=== PATIENT | female | born 1980 | race Caucasian/White ===

== ENCOUNTER 2020-05-07 11:19 | Emergency (ER) | payer BC, SELFPAY ==
[2020-05-07 11:41] VITALS: BP 107/66; PULSE 79; RESP 16; TEMP 36.4; O2SAT 97
--- NOTE | 2020-05-07 11:41 | ED.FEMALEGU ---
HPI - Female Genitourinary General Chief complaint: Urogenital-Female Stated complaint: Possible kidney infection Time Seen by Provider: 05/07/20 11:41 Source: patient and RN notes reviewed History of Present Illness HPI Narrative: Patient is a 39-year-old female who presents the urgent care with complaints of right flank pain. Patient states that she has a 10-year history of urinary tract infections and actually has a follow-up with urology on May 13. Patient states that her PCP told her her urine goes backwards instead of coming down . Patient denies any fever, chills, nausea, vomiting, abdominal pain. Patient states that her UTIs typically start out with flank pain. Patient states that her current symptoms started approximately 3 days ago. Patient denies any blood in the urine. No other acute complaints. No acute distress noted. Patient read the plan of care. Related Data Home Medications Medication Instructions Recorded Confirmed No Home Medications 12/09/19 12/09/19 Allergies Allergy/AdvReac Type Severity Reaction Status Date / Time levofloxacin [From Levaquin] Allergy Intermediate Rash Verified 05/07/20 11:39 Penicillins Allergy Mild Hives / Verified 12/09/19 10:37 Red Face Review of Systems Review of Systems: Narrative: CONSTITUTIONAL: Denies fever, chills, or sweats. EYES: Denies visual changes, redness, or discharge. ENT: Denies rhinorrhea, congestion, sore throat, or otalgia. CARDIOVASCULAR: Denies chest pain, palpitations, or edema. RESPIRATORY: Denies cough or dyspnea. GASTROINTESTINAL: Denies abdominal pain, nausea, vomiting, or diarrhea. GENITOURINARY: Denies dysuria or hematuria. SKIN: Denies rash or itching. MUSCULOSKELETAL: Reports of right flank pain NEUROLOGIC: Denies headache, numbness, or weakness. All other systems reviewed are negative, except as documented in HPI. PMFSH Social History Social History Gender identity (if verbalized by the patient): Female Comments At the time of my signature, I reviewed and agree with the nursing past medical, surgical, social, and family history. There is no relevant family history pertinent to the patient complaint. Exam Narrative: Exam Narrative: GENERAL: This is a well-nourished, well-developed patient, in no apparent distress. HEAD: normocephalic, atraumatic. EYES: PERRL. Sclera clear/white. Vision is grossly intact. EARS: External ears normal NOSE: External nose normal with no obvious nasal discharge, nares without redness, no rhinorrhea. THROAT: Mucous membranes moist NECK: Neck supple GASTROINTESTINAL: Abdomen soft, non-tender, nondistended. SKIN: warm, intact with no suspicious lesions or rash, good texture and turgor. NEURO: awake, alert, and oriented to person, place and time. There were no obvious focal neurologic abnormalities. EXTREMITIES: No clubbing, cyanosis, or edema. BACK: Mild right CVA tenderness Course Vital Signs Vital signs: Vital Signs Temperature 97.5 F L 05/07/20 11:41 Pulse Rate 79 05/07/20 11:41 Respiratory Rate 16 05/07/20 11:41 Blood Pressure 107/66 05/07/20 11:41 Pulse Oximetry 97 05/07/20 11:41 Temperature 97.5 F L 05/07/20 11:41 Pulse Rate 79 05/07/20 11:41 Respiratory Rate 16 05/07/20 11:41 Blood Pressure 107/66 05/07/20 11:41 Pulse Oximetry 97 05/07/20 11:41 Reviewed MDM - Female Genitourinary MDM Narrative Medical decision making narrative: Reviewed lab results with the patient. She is aware that urine analysis is likely indicative of a urinary tract infection. Due to patient's history and positive nitrates on the urine?we will treat for urinary tract infection. We will culture the urine and call her if medication needs to be changed, based on culture results. However, we do not call if medication does in fact treat what grows in the culture. Therefore, I would call for your results in order to relay that info
== END 2020-05-07 12:06 | disposition home or self-care (01) ==
PROVIDERS: Emergency Provider Nurse Practitioner Family
DX: N39.0 Urinary tract infection, site not specified (principal)
CPT/HCPCS: 81003; 87077; 87086; 87088; 87186; 99213; G0463

== ENCOUNTER 2020-05-16 07:23 | Emergency (ER) | payer BC, SELFPAY ==
--- NOTE | ~2020-05-16 | XR_ITS ---
EXAMINATION: XR thoracic spine 3V DATE: 05/16/2020 09:07 INDICATION: Back pain. TECHNIQUE: 3 views of thoracic spine on 4 radiographs were obtained. COMPARISON: Chest 2 views 09/24/2016 FINDINGS: Bone alignment is normal. There is mild chronic anterior wedging of a midthoracic vertebral body. There is mildly decreased disc height at multiple levels in mid thoracic spine. There are endp late osteophytes at most levels. IMPRESSION: 1. Mild thoracic spondylosis. Reviewed, dictated and finalized at location A.
[2020-05-16 07:26] VITALS: BP 121/64; PULSE 58; RESP 18; TEMP 36.9; O2SAT 99
--- NOTE | 2020-05-16 07:41 | PC.NURSE ---
Pt states she has lower back pain that radiates to her sides and her R arm is tingling. Pt denies urinary symptoms. Pt states she finished bactrim 2 days ago for kidney infection. 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 Pt appears in NAD. Pt has call light in reach.
--- NOTE | 2020-05-16 08:35 | ED.BACK ---
HPI - Back Pain/Injury General Chief Complaint: Back Pain/Injury Stated Complaint: back pain Time Seen by Provider: 05/16/20 08:35 History of Present Illness HPI Narrative: Patient presents from home for upper back pain. Started yesterday, without known injury. 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 She does have a history of kidney infections and kidney damage from that, but then her pain is on the flank usually on the right. She has no cough cold fever chills or sweats. The pain seems to be between her shoulder blades, and is 8 out of 10. It does not feel worse with twisting, but is relieved if she arches her back. She has a history of 4 C-sections. She does smoke cigarettes. She does not take prescription medication. MD elicited complaint: back pain Onset (ago): hour(s) Timing: constant Severity: moderate Similar Symptoms Previously: No Quality: dull Location: thoracic spine Relieving factors: other (Arching her back) Associated symptoms: denies other symptoms Related Data Allergies Allergy/AdvReac Type Severity Reaction Status Date / Time levofloxacin [From Levaquin] Allergy Intermediate Rash Verified 05/07/20 11:39 Penicillins Allergy Mild Hives / Verified 12/09/19 10:37 Red Face Review of Systems Review of Systems: Narrative: CONSTITUTIONAL: Denies fever, chills, or sweats. EYES: Denies visual changes, redness, or discharge. ENT: Denies rhinorrhea, congestion, sore throat, or otalgia. CARDIOVASCULAR: Denies chest pain, palpitations, or edema. RESPIRATORY: Denies cough or dyspnea. GASTROINTESTINAL: Denies abdominal pain, nausea, vomiting, or diarrhea. GENITOURINARY: Denies dysuria or hematuria. SKIN: Denies rash or itching. MUSCULOSKELETAL: He has back pain, but not joint pain, or myalgia. NEUROLOGIC: Denies headache, numbness, or weakness. PSYCHIATRIC: Denies anxiety or depression. [facility] Past Medical History Medical History History of pyelonephritis Surgical History Surgical History History of Social History Social History (Updated 05/16/20 @ 08:43 by Emma Cortés MD) Smoking status: Current every day smoker Alcohol intake: current Gender identity (if verbalized by the patient): Female Exam Narrative: Exam Narrative: GENERAL: Well-appearing, well-nourished, crying. HEAD: Normocephalic, atraumatic. EYES: PERRLA and EOMI. ENT: Nares clear, no rhinorrhea or epistaxis. Mucous membranes moist. NECK: Supple. CHEST: Clear to auscultation. No respiratory distress. HEART: Regular rate and rhythm. No murmur heard. Normal peripheral pulses. ABDOMEN: Soft, nontender, nondistended, normal active bowel sounds. EXTREMITIES: Normal range of motion. No edema. SKIN: Warm, dry, no rash. NEURO: No focal deficits. Alert and oriented x3. PSYCH: Crying. Back: Straight spine, no step-offs, no point tenderness, no muscle tenderness. Course Reevaluation(s) Reevaluation #1: Went in to check on the patient and tell her the results of her x-ray. She did not know that she had an compression fracture and did not even know what it was. She was unhappy to find out that she has arthritis and disc disease. She has Dr. Laird who follows with her regularly, but has not seen in spine surgeon. I recommended that if her pain is not better in 2 weeks that she get an MRI, and this could be done with Dr. Laird. Date: 05/16/20 Time: 10:15 Vital Signs Vital signs: Vital Signs Temperature 98.4 F 05/16/20 07:26 Pulse Rate 58 L 05/16/20 07:26 Respiratory Rate 18 05/16/20 07:26 Blood Pressure 121/64 05/16/20 07:26 Pulse Oximetry 99 05/16/20 07:26 Temperature 98.4 F 05/16/20 07:26 Pulse Rate 58 L 05/16/20 07:26 Respiratory Rate 18 05/16/20 07:26 Blood Pressure 121/64 05/16/20 07:26 Pulse Oximetry 99 06
[2020-05-16] MEDS: DIAZEPAM 5 MG TABLET PO (08:43)
== END 2020-05-16 10:26 | disposition home or self-care (01) ==
PROVIDERS: Emergency Provider Emergency Medicine; PCP Family Medicine
DX: M54.6 Pain in thoracic spine (principal); F17.210 Nicotine dependence, cigarettes, uncomplicated; M47.814 Spondylosis without myelopathy or radiculopathy, thoracic region
CPT/HCPCS: 72072; 99283; A9270

== ENCOUNTER 2020-05-16 15:07 | Emergency (ER) | payer BC, SELFPAY ==
--- NOTE | ~2020-05-16 | CT_ITS ---
EXAMINATION: CTA chest DATE: 05/16/2020 16:57 INDICATION: Chest and back pain. TECHNIQUE: Computed tomographic angiography (CTA) of the chest was performed with 100 mL Omnipaque-35 0 intravenous contrast. Volume-rendered 3D-reconstructions of the aorta and large arteries were const ructed by the technologist on a separate workstation. Automated exposure control and iterative recons truction technique were employed. The dose-length product was 366 mGy-cm. COMPARISON: 07/19/2013 FINDINGS: Mild dependent atelectasis in the bilateral lower lobes. No pneumonia, pulmonary edema, pleural effus ion or pneumothorax. Heart size is normal. No pericardial effusion. Thoracic aorta is normal in calib er with no dissection or acute traumatic aortic injury. No pathologically enlarged thoracic lymphaden opathy. Multiple regions of cortical scarring at the visualized upper poles of both kidneys, right gr eater than left. Mild lower thoracic dextrocurvature. Chronic Schmorl's nodes along multiple endplate s in the thoracic and upper lumbar spine the largest on the superior endplate of L2. IMPRESSION: 1. No aortic aneurysm, dissection or other acute cardiopulmonary disease. 2. Cortical cortical scarring at both kidneys, right greater than left. Reviewed, dictated and finalized at location A.
--- NOTE | ~2020-05-16 | XR_ITS ---
EXAMINATION: XR chest 2V DATE: 05/16/2020 16:06 INDICATION: Lower mid chest pain being through the right shoulder. TECHNIQUE: PA and lateral views of the chest were obtained. COMPARISON: Chest radiograph dated 09/24/2016 FINDINGS: The lungs remain clear with no focal airspace opacities, pulmonary edema, pleural effusion or pneumot horax. The cardiomediastinal silhouette is normal. Mild thoracic spondylosis. IMPRESSION: 1. No acute cardiopulmonary disease. Reviewed, dictated and finalized at location A.
--- NOTE | 2020-05-16 15:38 | ECG_ITS ---
Measurements Intervals [place] Rate: 60 P: 19 PA: 117 QRS: 29 QRSD: 91 T: 42 QT: 405 QTc: 405 Interpretive Statements SINUS RHYTHM WITH SHORT PA INTERVAL BASELINE ARTIFACT- I, II, III, AVR, AVF BORDERLINE ECG Electronically Signed On 05-16-2020 17:10:39 CDT by Fernando Pena D.O.
[2020-05-16] MEDS: LORAZEPAM INJ 2 MG/ML VIAL 1 MG IV PUSH (15:48)
[2020-05-16] MEDS: KETOROLAC 30 MG/ML VIAL (*BKC) IV PUSH (15:48)
[2020-05-16 15:56] VITALS: BP 124/66; PULSE 60; RESP 20; TEMP 36.7; O2SAT 97
[2020-05-16 15:58] LABS: Basophils Percent Auto 0.1 % (0.2-1.2); Eosinophils Absolute Auto 0.3 K/mm3 (0-0.3); Eosinophils Percent Auto 2.6 % (0-4.4); Immature Granulocyte Absolute 0.04 K/mm3 (0.00-0.031); Immature Granulocyte Percent A 0.4 % (0-0.5); Lymphocytes Absolute Auto 2.73 K/mm3 (0.9-3.2); Lymphocytes Percent Auto 24.3 % (18.3-44.2); Mean Corpuscular HGB Conc 33.3 g/dl (32-36); Mean Corpuscular Hemoglobin 31.2 pg (26-34); Mean Corpuscular Volume 93.5 fl (80-100); Mean Platelet Volume 9.8 fl (7.4-10.4); Monocytes Absolute Auto 0.7 K/mm3 (0.1-0.6); Monocytes Percent Auto 6.6 % (2.6-8.5); Neutrophils Absolute Auto 7.4 K/mm3 (1.3-6.7); Platelet Count Result 266 k/mm3 (150-375); Red Blood Count 4.49 M/mm3 (4.2-5.4); Red Cell Distribution Width 12.9 % (11.5-14.5); White Blood Count 11.2 K/mm3 (4.5-10.0)
--- NOTE | 2020-05-16 16:03 | ED.GENADULT ---
HPI - General Adult General Chief complaint: Chest Pain Stated complaint: chest pain, was seen earlier today Time Seen by Provider: 05/16/20 15:14 History of Present Illness HPI narrative: Patient is a 39 y/o female complaining of severe, diffuse chest pain since this morning. She rates her pain as 10/10 and the pain radiates to right shoulder. She feels like she cannot catch her breath. She states that her chest pain worsens when she sits down. She has no fever, chills, cough, abdominal pain, vomiting or diarrhea. Of note, she was seen this morning for back pain and was discharged after negative evaluation. Related Data Allergies Allergy/AdvReac Type Severity Reaction Status Date / Time levofloxacin [From Levaquin] Allergy Intermediate Rash Verified 05/07/20 11:39 Penicillins Allergy Mild Hives / Verified 12/09/19 10:37 Red Face Review of Systems Constitutional: Constitutional: Denies chills, Denies fever(s), Denies headache(s) and Denies weakness Eyes: Eyes: Denies blurry vision ENT: Denies headache(s) and Denies neck pain Cardiovascular: Cardiovascular: Reports chest pain and Reports dyspnea Respiratory: Respiratory: Denies cough and Reports dyspnea Gastrointestinal: Gastrointestinal: Denies abdominal pain, Denies diarrhea, Denies nausea and Denies vomiting Genitourinary: Genitourinary: Denies hematuria and Denies dysuria Musculoskeletal: Musculoskeletal: Reports back pain and Denies neck pain Neurologic: Denies headache(s) and Denies weakness PMFSH Past Medical History Medical History History of pyelonephritis Surgical History Surgical History History of Social History Social History Smoking status: Current every day smoker Alcohol intake: current Gender identity (if verbalized by the patient): Female Exam Const: General: no acute distress and well developed Orientation/consciousness: oriented to person, oriented to place, oriented to time and patient oriented x3 HENMT: Head: normocephalic Ears: external ears normal General nose exam: Normal external nose present Eyes: General: appearance normal, both eyes and all related structures Conjunctivae: conjunctivae normal Neck: Neck: normal visual inspection and full ROM Chest: Chest palpation & inspection: normal inspection of the chest and no tenderness Resp: Effort & Inspection: normal respiratory effort Auscultation: clear to auscultation bilaterally Cardio: Rate: regular rate Rhythm: regular rhythm GI: GI Palp: No abdominal tenderness and Yes Soft to palpation Skin: General skin exam: normal color and turgor normal Neuro: General: oriented to person, oriented to place, oriented to time and patient oriented x3 Cognition (Neuro): normal cognition Extrem: General: normal to inspection, full ROM and no pedal edema Psych: Appearance: grossly normal Mental Status: mental status grossly normal Affect: Anxious affect present Course Vital Signs Vital signs: Vital Signs Temperature 36.7 C 05/16/20 15:56 Pulse Rate 60 05/16/20 15:56 Respiratory Rate 05/16/20 15:56 Blood Pressure 124/66 05/16/20 15:56 Pulse Oximetry 97 05/16/20 15:56 Temperature 36.7 C 05/16/20 15:56 Pulse Rate 62 05/16/20 17:07 Respiratory Rate 05/16/20 17:07 Blood Pressure 102/52 L 05/16/20 17:07 Pulse Oximetry 96 05/16/20 17:07 Medical Decision Making Vital Signs Vital Signs: Vital Signs Temperature 36.7 C 05/16/20 15:56 Pulse Rate 60 05/16/20 15:56 Respiratory Rate 05/16/20 15:56 Blood Pressure 124/66 05/16/20 15:56 Pulse Oximetry 97 05/16/20 15:56 Temperature 36.7 C 05/16/20 15:56 Pulse Rate 62 05/16/20 17:07 Respiratory Rate 05/16/20 17:07 Blood Pressure 102/52 L 05/16/20 17:07 Pulse Oximetry 96
[2020-05-16 16:09] LABS: D Dimer 0.48 ug/mL (<0.48)
[2020-05-16 16:10] LABS: Alanine Aminotransferase 16 U/L (4-35); Albumin Level 4.2 g/dL (3.5-5.1); Alkaline Phosphatase 56 U/L (38-126); Aspartate Amino Transferase 22 U/L (14-36); Bilirubin,Total 0.4 mg/dL (0.2-1.3); Blood Urea Nitrogen 19 mg/dL (7-17); Calcium 9.3 mg/dL (8.4-10.2); Carbon Dioxide 25 mmol/L (22-30); Chloride 105 mmol/L (98-107); Estimated CRCL calculation 82 ml/min; Estimated Glomerular Filt Rate > 60; Glucose 94 mg/dL (65-105); Potassium 3.9 mmol/L (3.4-5.0); Sodium 138 mmol/L (137-145)
[2020-05-16 16:17] VITALS: PULSE 58
[2020-05-16 16:22] LABS: Troponin I < 0.012 ng/mL (0.000-0.034)
[2020-05-16 17:07] VITALS: BP 102/52; PULSE 62; RESP 20; O2SAT 96
[2020-05-16 18:58] LABS: Troponin I < 0.012 ng/mL (0.000-0.034)
[2020-05-16 20:04] VITALS: BP 122/77; PULSE 80; RESP 20; TEMP 36.7; O2SAT 99
== END 2020-05-16 20:05 | disposition home or self-care (01) ==
PROVIDERS: Emergency Provider Emergency Medicine; PCP Family Medicine
DX: R07.9 Chest pain, unspecified (principal); R94.31 Abnormal electrocardiogram [ECG] [EKG]
CPT/HCPCS: 36415; 71046; 71275; 72072; 80053; 81025; 84484; 85025; 85380; 93005; 96374; 96375; 99284; A9270; J1885; J2060; Q9967

== ENCOUNTER 2021-03-30 14:43 | Emergency (ER) | payer BC, SELFPAY ==
--- NOTE | 2021-03-30 14:47 | ED.SKABFB ---
HPI - Skin/Abscess/Foreign Bdy General Chief complaint: Skin/Abscess/Foreign Body Stated complaint: rash Time Seen by Provider: 03/30/21 14:48 Source: patient and RN notes reviewed Mode of arrival: ambulatory Limitations: no limitations History of Present Illness HPI narrative: 40-year-old female presents with concern for itchy facial rash, reports rash is around her eyes, and her eyes itch. She denies any discharge from her eyes. Reports symptoms started Saturday morning. She denies any known trigger. Cannot think of any new skin care products, household products. Reports she has been taking new medication for approximately 1 month, Xarelto and [place] for a blood clot. She denies any intervention for her symptoms. She denies difficulty breathing, swollen lips, swollen tongue, itchy tongue, nausea, vomiting, fever. complaint: rash Related Data Home Medications Medication Instructions Recorded Confirmed hydrocodone-acetaminophen 1 tablet PO Q8H PRN 03/30/21 03/30/21 rivaroxaban [Xarelto] 20 mg PO DAILY 03/30/21 03/30/21 Allergies Allergy/AdvReac Type Severity Reaction Status Date / Time levofloxacin [From Levaquin] Allergy Intermediate Rash Verified 03/30/21 14:55 Penicillins Allergy Mild Hives / Verified 03/30/21 14:55 Red Face Review of Systems Review of Systems: Narrative: CONSTITUTIONAL: Denies malaise, chills, sweats, or fever. EYES: Denies visual changes, redness, or discharge. ENT: Denies rhinorrhea, congestion, sinus pain, otalgia or sore throat. CARDIOVASCULAR: Denies chest pain, palpitations, or edema. RESPIRATORY: Denies cough or dyspnea. GASTROINTESTINAL: Denies abdominal pain, nausea, vomiting, diarrhea SKIN: Reports itchy facial rash, rash around her eyes MUSCULOSKELETAL: Denies myalgia. NEUROLOGIC: Denies headache. All systems reviewed & are unremarkable except as noted in HPI and below PMFSH Past Medical History Medical History (Updated 03/30/21 @ 14:55 by Karolyn Murguia NP) History of pyelonephritis Surgical History Surgical History History of Social History Social History Smoking status: Current every day smoker Alcohol intake: current Gender identity (if verbalized by the patient): Female Comments At time of signature, agree with nursing past medical, surgical, social and family history. There is no relevant family history pertinent to the presenting complaint Exam Narrative: Exam Narrative: GENERAL: Well-appearing, well-nourished, and in no acute distress. HEAD: Normocephalic, atraumatic. EYES: PERRLA, conjunctivae clear, sclera clear, and EOMI. mild upper eyelid superficial edema ENT: Mucous membranes moist. Oropharynx without edema, erythema or lesions. NECK: Supple. No lymphadenopathy CHEST: Clear to auscultation. No respiratory distress. HEART: Regular rate and rhythm. SKIN: Warm, dry. Erythematous maculopapular rash noted to the face, satellite lesions on the chest NEURO: Alert and oriented x3. PSYCH: Normal mood and affect Course Course Emergency Course: Patient is aware of diagnosis, understands and agrees to treatment plan. Anticipatory guidance given. Patient agrees to follow-up as directed and is aware of reasons to seek care at the emergency department. Portions of this record may have been created with voice recognition software Vital Signs Vital signs: Vital Signs Temperature 97.4 F L 03/30/21 14:50 Pulse Rate 56 L 03/30/21 14:50 Respiratory Rate 16 03/30/21 14:50 Blood Pressure 115/70 03/30/21 14:50 Pulse Oximetry 99 03/30/21 14:50 Temperature 97.4 F L 03/30/21 14:55 Pulse Rate 56 L 03/30/21 14:55 Respiratory Rate 16 03/30/21 14:55 Blood Pressure 115/70 03/30/21 14:55 Pulse Oximetry 99 03/30/21 14:55 Reviewed. MDM - Skin/Abscess/Foreign Bdy MDM Narrative Medical decision making narrative: D
[2021-03-30 14:50] VITALS: BP 115/70; PULSE 56; RESP 16; TEMP 36.3; O2SAT 99
[2021-03-30 14:55] VITALS: BP 115/70; PULSE 56; RESP 16; TEMP 36.3; O2SAT 99
== END 2021-03-30 15:06 | disposition home or self-care (01) ==
PROVIDERS: Emergency Provider Nurse Practitioner; PCP Family Medicine
DX: L25.9 Unspecified contact dermatitis, unspecified cause (principal); F17.200 Nicotine dependence, unspecified, uncomplicated; Z79.01 Long term (current) use of anticoagulants; Z86.2 Personal history of diseases of the blood and blood-forming organs and certain disorders involving the immune mechanism; Z87.898 Personal history of other specified conditions
CPT/HCPCS: 99213; G0463

== ENCOUNTER 2021-09-19 16:58 | Emergency (ER) | payer BC, SELFPAY ==
[2021-09-19 17:09] VITALS: BP 121/70; PULSE 63; RESP 16; TEMP 37.2; O2SAT 99
--- NOTE | 2021-09-19 17:39 | ED.URI ---
HPI - URI/Sore Throat General Chief Complaint: Upper Respiratory Infection Stated Complaint: wheezing Time Seen by Provider: 09/19/21 17:39 Source: patient, family and RN notes reviewed Mode of arrival: ambulatory Limitations: no limitations History of Present Illness HPI Narrative: Jo is a 41-year-old female patient who ambulated to the [facility]. Patient states for the last 3 days she has had a cough and feels wheezy. Patient states she has a productive cough of clear sputum when she is laying down. Patient states she has a history of asthma but has not used any albuterol or any other meds and 2 years. Patient does smoke daily. Patient has used albuterol and prednisone in the past. Patient denies using any [id number] medications. Patient states she has had nasal congestion and postnasal drainage for the last 3 days MD elicited complaint: cough Related Data Allergies Allergy/AdvReac Type Severity Reaction Status Date / Time levofloxacin [From Levaquin] Allergy Intermediate Rash Verified 09/19/21 17:41 Penicillins Allergy Mild Hives / Verified 09/19/21 17:41 Red Face Review of Systems Review of Systems: CONSTITUTIONAL: Denies body aches, fever, chills, or sweats. EYES: Denies visual changes, redness, or discharge. ENT: Denies rhinorrhea, +congestion, denies sore throat, or otalgia. CARDIOVASCULAR: Denies chest pain, palpitations, or edema. RESPIRATORY: + cough + wheezing GASTROINTESTINAL: Denies abdominal pain, nausea, vomiting, or diarrhea. GENITOURINARY: Denies dysuria or hematuria. SKIN: Denies rash, itching, or wounds. MUSCULOSKELETAL: Denies back pain, joint pain, or myalgia. NEUROLOGIC: Denies headache, numbness, tingling, or weakness. PSYCH: Denies depression or anxiety. System All systems reviewed & are unremarkable except as noted in HPI and below PMFSH Past Medical History Medical History (Updated 09/19/21 @ 17:47 by REYES Mendoza) History of pyelonephritis Surgical History Surgical History History of Social History Social History Smoking status: Current every day smoker Alcohol intake: current Gender identity (if verbalized by the patient): Female Comments At time of signature, I have reviewed and agree with nursing past medical, surgical, social and family history unless otherwise noted. Please see nursing chart for further information. There is no relevant family history pertinent to the presenting complaint Exam Narrative: GENERAL: Well-appearing, well-nourished, and in no acute distress. HEAD: Normocephalic, atraumatic. EYES: EOMI. No redness or drainage. Conjunctivae normal. ENT: Mucous membranes pink and moist. Nares clear. Clear rhinorrhea. NECK: Normal AROM. Supple. No lymphadenopathy. CHEST: No respiratory distress. Inspiratory and Expiratory wheezing heard throughout lung duncan bilaterally HEART: Regular rate and rhythm. No murmur appreciated. Normal peripheral pulses. ABDOMEN: Soft, nontender, nondistended, normal active bowel sounds. MUSCULOSKELETAL: No bony tenderness. EXTREMITIES: Normal range of motion. No edema. SKIN: Warm, dry, no rash. Capillary refill normal. Normal skin turgor. NEURO: No focal deficits. Alert and oriented x3. Gait steady. PSYCH: Normal affect. No signs of depression or anxiety. Course Vital Signs Vital signs: Vital Signs Temperature 37.2 C 09/19/21 17:09 Pulse Rate 63 09/19/21 17:09 Respiratory Rate 16 09/19/21 17:09 Blood Pressure 121/70 09/19/21 17:09 Pulse Oximetry 99 09/19/21 17:09 Temperature 37.2 C 09/19/21 17:09 Pulse Rate 63 09/19/21 17:09 Respiratory Rate 16 09/19/21 17:09 Blood Pressure 121/70 09/19/21 17:09 Pulse Oximetry 99 09/19/21 17:09 Reviewed MDM - URI/Sore Throat Differential Diagnosis Differential diagnosis: Likely upper respirator
== END 2021-09-19 17:55 | disposition home or self-care (01) ==
PROVIDERS: Emergency Provider Nurse Practitioner Family
DX: J06.9 Acute upper respiratory infection, unspecified (principal); F17.200 Nicotine dependence, unspecified, uncomplicated; Z86.718 Personal history of other venous thrombosis and embolism; N28.9 Disorder of kidney and ureter, unspecified
CPT/HCPCS: 99213; G0463

== ENCOUNTER 2022-02-26 10:22 | Emergency (ER) | payer BC, SELFPAY ==
--- NOTE | ~2022-02-26 | XR_ITS ---
EXAMINATION: XR foot LT min 3V DATE: 02/26/2022 10:51 INDICATION: Stepped on a needle at the medial side of the left foot TECHNIQUE: Dorsoplantar, two oblique and lateral views of the left foot were obtained. COMPARISON: None. FINDINGS: Alignment is normal. No fracture. Joint spaces are normal. 1.7 cm long thin linear metallic density c onsistent with a needle fragment in the soft tissues plantar to the proximal diaphysis of the first m etatarsal with superficial tip projecting to within 3 mm of the skin surface. IMPRESSION: 1. Needle fragment in the soft tissues plantar to the proximal left first metatarsal. Reviewed, dictated and finalized at location A. IMPRESSION: 1. Needle fragment in the soft tissues plantar to the proximal left first metat arsal.
[2022-02-26 10:33] VITALS: BP 113/61; PULSE 55; RESP 14; TEMP 36.8; O2SAT 99
--- NOTE | 2022-02-26 12:40 | ED.LOWEXIN ---
HPI - Extremity Injury (Lower) General Chief Complaint: Extremity Injury, Lower <KELBY Leung Last Filed: 02/26/22 20:16> Stated Complaint: needle in foot <KELBY Leung Last Filed: 02/26/22 20:16> Time Seen by Provider: 02/26/22 11:37 <KELBY Leung Last Filed: 02/26/22 20:16> Source: patient <KELBY Leung Last Filed: 02/26/22 20:16> Mode of arrival: ambulatory <KELBY Leung Last Filed: 02/26/22 20:16> Limitations: no limitations <KELBY Leung Last Filed: 02/26/22 20:16> History of Present Illness HPI Narrative: Patient is a 41-year-old female who presents the ED with report of needle in her left foot. Patient reports she was walking on her carpet just prior to arrival when she felt something stab her in her left foot. She did see a sewing needle coming from her left foot and was able to pull this out, but it broke in half. She complains of pain to the insertion point of her left foot. She is able to ambulate, but has pain with this. No other injuries. Her tetanus status is unknown. No fever, chills. <KELBY Leung Last Filed: 02/26/22 20:16> Related Data Allergies/Adverse Reactions: Allergies Allergy/AdvReac Type Severity Reaction Status Date / Time levofloxacin [From Levaquin] Allergy Intermediate Rash Verified 09/19/21 17:41 Penicillins Allergy Mild Hives / Verified 09/19/21 17:41 Red Face <KELBY Leung Last Filed: 02/26/22 20:16> Review of Systems Review of Systems: CONSTITUTIONAL: Denies fever, chills. SKIN: Reports puncture wound to left foot. MUSCULOSKELETAL: Reports pain to L foot from needle stick. Denies back pain. <KELBY Leung Last Filed: 02/26/22 20:16> All systems reviewed & are unremarkable except as noted in HPI and below <Flora Min PA-C - Last Filed: 02/26/22 20:16> [facility] Past Medical History Medical History: Medical History (Updated 02/27/22 @ 00:00 by Kaity Issa) History of pyelonephritis <Flora Min PA-C - Last Filed: 02/26/22 20:16> Surgical History Surgical History: Surgical History History of <Flora Min PA-C - Last Filed: 02/26/22 20:16> Social History Social History: Social History Smoking status: Current every day smoker Alcohol intake: current Gender identity (if verbalized by the patient): Female <Flora Min PA-C - Last Filed: 02/26/22 20:16> Exam Narrative: GENERAL: Well appearing, well-nourished, non-toxic, in no acute distress. HEAD: Normocephalic, atraumatic. RESPIRATORY: Airway patent, respirations nonlabored. Clear to auscultation bilaterally, no rales, rhonchi, wheezing. CARDIOVASCULAR: Regular rate and rhythm without murmurs, rubs, or gallops. Peripheral pulses 2+ and equal bilaterally. MUSCULOSKELETAL: Moves all extremities. Strength/ROM intact without gross deformities. Tenderness to palpation around puncture wound of left foot. SKIN: Punctate puncture opening to sole of left foot under the first metatarsal area. No surrounding erythema. NEURO: A&O X3. Speech clear. Cranial nerves II-XII grossly intact. Steady gait. No ataxic movements. PSYCHIATRIC: Appropriate mood and affect. Normal interaction. <Flora Min PA-C - Last Filed: 02/26/22 20:16> Course PRODUCT DEVELOPMENT ASSISTANT/PA Physician Supervision For this patient encounter, I reviewed the PRODUCT DEVELOPMENT ASSISTANT or PA documentation, treatment plan, and medical decision making <Kenneth Mojica MD - Last Filed: 02/27/22 20:26> Consultations Consultation #1: Spoke with Dr. Ga, Podiatry, who advised he does not take Medicaid. Recommended prophylactic abx, tetanus. <Flora Min PA-C - Last Filed: 02/26/22 20:16> Date: 02/26/22 <Flora Min PA-C - Last Filed: 02/26/22 20:16> Time: 14:10 <Flora Min
[2022-02-26] MEDS: TETANUS,DIPHTHERIA,AC PERTUSSIS ADULT (0.5 ML) BOOSTRIX IM (12:53)
[2022-02-26] MEDS: ceFAZolin SODIUM 1 GM VIAL IM (14:24)
--- NOTE | 2022-02-26 15:23 | PC.NURSE ---
Called Dr Ga podiatry at 1400 for consult. He returned call at 1406. Osmosis
== END 2022-02-26 14:33 | disposition home or self-care (01) ==
PROVIDERS: Emergency Provider Emergency Medicine; PCP Family Medicine
DX: S91.342A Puncture wound with foreign body, left foot, initial encounter (principal); Z23 Encounter for immunization; F17.200 Nicotine dependence, unspecified, uncomplicated; W27.3XXA Contact with needle (sewing), initial encounter
CPT/HCPCS: 28190; 73630; 90471; 90715; 96372; 99283; J0690

== ENCOUNTER 2023-04-13 12:34 | Emergency (ER) | payer BC, SELFPAY ==
--- NOTE | ~2023-04-13 | CT_ITS ---
EXAMINATION: CT lumbar spine wo con DATE: 04/13/2023 15:59 INDICATION: low back pain . TECHNIQUE: Computed tomography (CT) of the lumbar spine was performed without intravenous contrast. A utomated exposure control and iterative reconstruction technique were employed. The dose-length produ ct was 661.66 mGy-cm. COMPARISON: CT abdomen pelvis 12/24/2018. FINDINGS: 5 nonrib-bearing lumbar-type vertebral bodies. 9 mm anterolisthesis at L5-S1. Vertebral bod y heights preserved. Severe disc space narrowing, endplate sclerosis, and vacuum phenomenon at L5-S1. Multiple Schmorl's nodes. Bilateral pars defects at L5. Bilateral severe neural foraminal narrowing at L5-S1. No severe central canal stenosis. Atherosclerotic arterial calcifications. Bilateral adnexa l clips. IMPRESSION: No acute fracture detected in the lumbar spine. Grade 2 anterolisthesis at L5-S1, increased since the prior examination. Severe L5-S1 degenerative disc disease and bilateral neural foraminal narrowing. Reviewed, dictated and finalized at location K. IMPRESSION: No acute fracture detected in the lumbar spine. Grade 2 anterolisthesis at L5-S 1, increased since the prior examination. Severe L5-S1 degenerative disc diseas e and bilateral neural foraminal narrowing.
[2023-04-13 13:06] VITALS: BP 115/61; PULSE 75; RESP 18; TEMP 37.1; O2SAT 99
--- NOTE | 2023-04-13 15:34 | ED.BACK ---
HPI - Back Pain/Injury General Chief Complaint: Back Pain/Injury Stated Complaint: fall, back pain Time Seen by Provider: 04/13/23 14:59 History of Present Illness HPI Narrative: 42-year-old female presents to the emergency room today for complaints of low back pain. She says that she fell down the stairs early this morning and it has been hurting since then. She describes the pain as severe. She is able to ambulate. Denies having any numbness or tingling. No loss of control of bowel or bladder. No history of back surgery but does report having arthritis in her back. Related Data Allergies Allergy/AdvReac Type Severity Reaction Status Date / Time levofloxacin [From Levaquin] Allergy Intermediate Rash Verified 04/13/23 15:39 Penicillins Allergy Mild Hives / Verified 04/13/23 15:39 Red Face Review of Systems Review of Systems: CONSTITUTIONAL: Denies fever, chills, or sweats. EYES: Denies visual changes, redness, or discharge. ENT: Denies rhinorrhea, congestion, sore throat, or otalgia. CARDIOVASCULAR: Denies chest pain, palpitations, or edema. RESPIRATORY: Denies cough or dyspnea. GASTROINTESTINAL: Denies abdominal pain, nausea, vomiting, or diarrhea. GENITOURINARY: Denies dysuria or hematuria. SKIN: Denies rash or itching. MUSCULOSKELETAL: low back pain NEUROLOGIC: Denies headache, numbness, dizziness, or weakness. PSYCHIATRIC: Denies anxiety or depression. PMFSH Past Medical History Medical History (Updated 04/13/23 @ 16:55 by Ramona Montenegro APRN) History of pyelonephritis Surgical History Surgical History History of Social History Social History Smoking status: Current every day smoker Alcohol intake: current Gender identity (if verbalized by the patient): Female Exam Narrative: GENERAL: Well-appearing, well-nourished, and in no acute distress. HEAD: Normocephalic, atraumatic. NECK: Supple. No adenopathy or masses. CHEST: Clear to auscultation. No respiratory distress. No wheezes rales or rhonchi HEART: Regular rate and rhythm. No murmur heard. Normal peripheral pulses. ABDOMEN: Soft, nontender, nondistended, normal active bowel sounds. EXTREMITIES: Normal range of motion. No edema. Back: Tenderness lower lumbar spine, no swelling, bruising or deformity. SKIN: Warm, dry, no rash. NEURO: No focal deficits. Alert and oriented x3. sensation and reflexes lower extremities intact. PSYCH: Normal mood and affect. Course Vital Signs Vital signs: Vital Signs Temperature 37.1 C 04/13/23 13:06 Pulse Rate 75 04/13/23 13:06 Respiratory Rate 18 04/13/23 13:06 Blood Pressure 115/61 04/13/23 13:06 Pulse Oximetry 99 04/13/23 13:06 Oxygen Delivery Room Air 04/13/23 13:06 Temperature 37.1 C 04/13/23 13:06 Pulse Rate 75 04/13/23 13:06 Respiratory Rate 18 04/13/23 13:06 Blood Pressure 115/61 04/13/23 13:06 Pulse Oximetry 99 04/13/23 13:06 Oxygen Delivery Room Air 04/13/23 13:06 MDM - Back Pain/Injury Lab Data Labs: UCG Bedside Result Negative Reference Range: Negative Imaging Data Radiologist's impression: EXAMINATION: CT lumbar spine wo con DATE: 04/13/2023 15:59 INDICATION: low back pain . TECHNIQUE: Computed tomography (CT) of the lumbar spine was performed without intravenous contrast. Automated exposure control and iterative reconstruction technique were employed. The dose-length product was 661.66 mGy-cm. COMPARISON: CT abdomen pelvis 12/24/2018. FINDINGS: 5 nonrib-bearing lumbar-type vertebral bodies. 9 mm anterolisthesis at L5-S1. Vertebral body heights preserved. Severe disc space narrowing, endplate sclerosis, and vacuum phenomenon at L5-S1. Multiple Schmorl's nodes. Bilateral pars defects at L5. Bilateral severe neural fo
[2023-04-13] MEDS: CYCLOBENZAPRINE HCL 10 MG TABLET PO (15:37)
[2023-04-13] MEDS: HYDROcodone/acetaminophen (*CRX) 7.5-325 MG TABLET 1 TAB PO (15:38)
== END 2023-04-13 17:11 | disposition home or self-care (01) ==
PROVIDERS: Emergency Provider Nurse Practitioner Family
DX: M54.50 Low back pain, unspecified (principal); M43.16 Spondylolisthesis, lumbar region; F17.200 Nicotine dependence, unspecified, uncomplicated; W10.9XXA Fall (on) (from) unspecified stairs and steps, initial encounter
CPT/HCPCS: 72131; 81025; 99284; A9270

== ENCOUNTER 2024-05-07 15:21 | Emergency (ER) | payer BC, SELFPAY ==
[2024-05-07 15:34] VITALS: BP 118/64; PULSE 66; RESP 18; TEMP 37.1; O2SAT 100
--- NOTE | 2024-05-07 16:04 | ED.DENTAL ---
HPI - Dental/Oral General Chief complaint: Dental/Oral Stated complaint: tooth pain Time Seen by Provider: 05/07/24 15:44 History of Present Illness HPI Narrative: 43-year-old female presents to emergency department for concerns for a dental abscess. Patient states she has had a focal collection of pus above her right upper tooth for few weeks. States she has been able to express the pus, however keeps feeling up which prompted her to come to the ED. She is reporting pain to this area. Denies fever, vomiting, difficulty eating or swallowing. She does not have a dentist. Related Data Allergies Allergy/AdvReac Type Severity Reaction Status Date / Time levofloxacin [From Levaquin] Allergy Intermediate Rash Verified 05/07/24 15:47 Penicillins Allergy Mild Hives / Verified 05/07/24 15:47 Red Face Review of Systems Review of Systems: CONSTITUTIONAL: Denies fever, chills, or sweats. EYES: Denies visual changes, redness, or discharge. ENT: See HPI CARDIOVASCULAR: Denies chest pain, palpitations, or edema. RESPIRATORY: Denies cough or dyspnea. GASTROINTESTINAL: Denies abdominal pain, nausea, vomiting, or diarrhea. GENITOURINARY: Denies dysuria or hematuria. SKIN: Denies rash or itching. MUSCULOSKELETAL: Denies back pain, joint pain, or myalgia. NEUROLOGIC: Denies headache, numbness, or weakness. PSYCHIATRIC: Denies anxiety or depression. [facility] Past Medical History Medical History History of pyelonephritis Surgical History Surgical History History of Social History Social History Smoking status: Current every day smoker Alcohol intake: current Gender identity (if verbalized by the patient): Female Exam Narrative: GENERAL: Well-appearing, well-nourished, and in no acute distress. HEAD: Normocephalic, atraumatic. EYES: PERRLA and EOMI. ENT: Nares clear, no rhinorrhea or epistaxis. Mucous membranes moist. small Periapical abscess above tooth #5 is easily expressed with 18 gauge needle. No edema to face, floor mouth is soft without crepitus. Airway intact, no airway compromise. Patient tolerating secretions. No trismus. NECK: Supple. CHEST: Clear to auscultation. No respiratory distress. HEART: Regular rate and rhythm. No murmur heard. Normal peripheral pulses. EXTREMITIES: Normal range of motion. No edema. SKIN: Warm, dry, no rash. NEURO: No focal deficits. Alert and oriented x3 Course Vital Signs Vital signs: Vital Signs Temperature 98.8 F 05/07/24 15:34 Pulse Rate 66 05/07/24 15:34 Respiratory Rate 18 05/07/24 15:34 Blood Pressure 118/64 05/07/24 15:34 Pulse Oximetry 100 05/07/24 15:34 Oxygen Delivery Room Air 05/07/24 15:34 Temperature 98.8 F 05/07/24 15:34 Pulse Rate 66 05/07/24 15:34 Respiratory Rate 18 05/07/24 15:34 Blood Pressure 118/64 05/07/24 15:34 Pulse Oximetry 100 05/07/24 15:34 Oxygen Delivery Room Air 05/07/24 15:34 MDM - Dental/Oral MDM Narrative Medical decision making narrative: 43-year-old female presents to emergency department with dental pain and concern for an abscess above her right Upper tooth for a few weeks. Triage vitals stable. Exam is significant for paper apical abscess above tooth #5. no edema, no airway compromise, patient tolerating secretions, no trismus. No evidence of deep space infection. Periapical abscess easily expressed with an 18 gauge needle without complication. I did offer local anesthetic prior to drainage, however patient declined. She is allergic to penicillins and Levaquin. Will start her on clindamycin, 1st dose provided here. Gave her a dose of [place] in the ED as well. Encouraged Tylenol ibuprofen at home for pain. Dental referrals provided. Strict ED return precautions discussed. She is a
[2024-05-07] MEDS: CLINDAMYCIN HCL 150 MG CAP 450 MG PO (16:29)
[2024-05-07] MEDS: HYDROcodone/acetaminophen (*CRX) 5-325 MG TABLET 1 TAB PO (16:29)
[2024-05-07 16:45] VITALS: BP 118/66; PULSE 69; RESP 16; TEMP 36.6; O2SAT 97
== END 2024-05-07 16:45 | disposition home or self-care (01) ==
LOC: ANHED 16:16
PROVIDERS: Emergency Provider Physician Assistant
DX: K04.7 Periapical abscess without sinus (principal); F17.200 Nicotine dependence, unspecified, uncomplicated; Z79.899 Other long term (current) drug therapy
CPT/HCPCS: 99283; A9270

== ENCOUNTER 2024-06-26 01:50 | Emergency (ER) | payer BC, SELFPAY ==
--- NOTE | 2024-06-26 01:52 | PC.NURSE ---
patient began screaming and swearing at this nurse at triage. Demanded that IV be removed and told this nurse she was acting like God, used more foul language and left before being triaged
--- NOTE | 2024-06-26 02:07 | PC.NURSE ---
IV removed prior to patient leaving triage
== END 2024-06-26 01:55 | disposition left against medical advice (07) ==
LOC: ANHED 02:08
DX: Z53.21 Procedure and treatment not carried out due to patient leaving prior to being seen by health care provider (principal)
CPT/HCPCS: 99199

== ENCOUNTER 2024-06-26 02:12 | Emergency (ER) | payer BC, SELFPAY ==
--- NOTE | ~2024-06-26 | CT_ITS ---
EXAMINATION: CT brain wo con DATE: 06/26/2024 03:20 INDICATION: Head injury TECHNIQUE: Computed tomography (CT) of the head was performed without intravenous contrast. The dose- length product was 529.67 mGy-cm. Automated exposure control and iterative reconstruction technique w ere employed. COMPARISON: None FINDINGS: No acute intracranial hemorrhage, infarction, mass or mass effect. No ventriculomegaly or m idline shift. Basilar cisterns are patent paranasal sinuses and mastoids are pneumatized. No depresse d skull fractures. IMPRESSION: 1. No acute intracranial abnormality. Reviewed, dictated and finalized at location B.
--- NOTE | ~2024-06-26 | CT_ITS ---
EXAMINATION: CT thoracic lumbar wo con DATE: 06/26/2024 03:21 INDICATION: Back pain post fall TECHNIQUE: Computed tomography (CT) of the thoracic and lumbar spine was performed without intravenou s contrast. Automated exposure control and iterative reconstruction technique were employed. The dose -length product was 1407.56 mGy-cm. COMPARISON: CT chest dated 05/16/[address] lumbar spine dated 04/13/2023 FINDINGS: Thoracic spine: Alignment is normal. Unchanged chronic mild anterior wedging at T8. There are also large Schmorl's no kennedy along multiple endplates in the mid and lower thoracic spine. No acute fracture. Moderate disc he ight loss at T6-T7 through T8-T9 with mild disc height loss at remaining levels from T4 to T5 through T10-T11. Moderate facet osteoarthritis contributes to mild neural from stenosis on the right at T5-T 6. There is additional multilevel mild to moderate upper thoracic and mild lower thoracic facet osteo arthritis without additional neural foraminal stenosis. Central disc protrusion resulting in mild nikole tral canal stenosis at T6-T7, potentially also at T7-T8 and T8-T9 although assessment is more limited on the CT than MRI. Dependent predominant mosaic attenuation in the lungs likely related to expirato ry phase of imaging and atelectasis. Couple tiny calcified nodules in the right lower lobe consistent with old granulomatous disease. Paravertebral soft tissues are unremarkable. Lumbar spine: Chronic L5 spondylolysis with bilateral pars interarticularis defects and a millimeter anterolisthesi s L5 on S1. There is severe associated disc height loss with Modic type III sclerotic endplate change s at L5-S1. Chronic Schmorl's nodes small the superior endplates of L1 and L3 and larger at the super ior endplate of L2. Aside from L5-S1 the disc heights are relatively preserved. There is a disc extru cathy at L5-S1 with disc material extending up to 7 mm cephalad to the level of the inferior endplate of L5 but not extending more posterior than the posterior rim of the S1 endplate. There is no signifi cant central canal stenosis. Mild multilevel lumbar facet osteoarthritis. The disc extrusion at L5-S1 disc contributing to moderate to severe bilateral neural from stenosis at this level. Additional mil d neural from stenosis on the right at L4-L5. There are likely duplicated rotation clips at the left and right sides of the uterus. Moderate to severe right renal atrophy with compensatory hypertrophy o f the left kidney with a few regions of focal cortical scarring paravertebral soft tissues are otherw ise unremarkable. IMPRESSION: 1. Chronic L5 spondylolysis with bilateral pars in particular is defects, 8 mm anterolisthesis on S1 and severe associated lumbosacral spondylosis including moderate to severe bilateral neural foraminal stenosis. 2. Moderate thoracic and otherwise mild lumbar spondylosis with no acute osseous abnormality. Reviewed, dictated and finalized at location A. IMPRESSION: 1. Chronic L5 spondylolysis with bilateral pars in particular is defects, 8 mm anterolisthesis on S1 and severe associated lumbosacral spondylosis including m oderate to severe bilateral neural foraminal stenosis. 2. Moderate thoracic and otherwise mild lumbar spondylosis with no acute osseou s abnormality.
--- NOTE | ~2024-06-26 | CT_ITS ---
EXAMINATION: CT cervical spine wo con DATE: 06/26/2024 03:21 INDICATION: Head injury post fall TECHNIQUE: Computed tomography (CT) of the cervical spine was performed without intravenous contrast. Automated exposure control and iterative reconstruction technique were employed. The dose-length pro duct was 367.56 mGy-cm. COMPARISON: None FINDINGS: Slight reversal of normal cervical lordosis. No spondylolisthesis or facet subluxation. Vertebral bod y heights are normal. No fracture. Mild disc height loss at C4-C5 and C5-C6 associated mild uncoverte bral osteoarthritis or prominent at C5-C6. Small posterior endplate osteophytes at this level was onl y negligible central canal stenosis. Moderate facet osteoarthritis on the right at C2-C3 and T1-T2 on the left at C7-T1. Otherwise minimal to mild scattered facet osteoarthritis. Minimal neural from severiano nosis bilaterally at C5-C6. Visualized apices of lungs are clear. Cervical soft tissues are unremarka ble. IMPRESSION: 1. Mild cervical spondylosis. No acute osseous abnormality . Reviewed, dictated and finalized at location A.
[2024-06-26 02:20] VITALS: BP 112/72; PULSE 98; RESP 20; TEMP 36.9; O2SAT 97
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
[2024-06-26 05:58] VITALS: BP 100/63; PULSE 70; RESP 16; O2SAT 95
[2024-06-26] MEDS: ACETAMINOPHEN 500 MG TABLET 1000 MG PO (06:05)
== END 2024-06-26 06:11 | disposition home or self-care (01) ==
PROVIDERS: Emergency Provider Student in an Organized Health Care Education/Training Program
DX: S09.90XA Unspecified injury of head, initial encounter (principal); S39.92XA Unspecified injury of lower back, initial encounter; F10.129 Alcohol abuse with intoxication, unspecified; Y90.9 Presence of alcohol in blood, level not specified; M51.37 Other intervertebral disc degeneration, lumbosacral region; M47.816 Spondylosis without myelopathy or radiculopathy, lumbar region; M47.817 Spondylosis without myelopathy or radiculopathy, lumbosacral region; M48.07 Spinal stenosis, lumbosacral region; M47.814 Spondylosis without myelopathy or radiculopathy, thoracic region; F17.200 Nicotine dependence, unspecified, uncomplicated; W04.XXXA Fall while being carried or supported by other persons, initial encounter
CPT/HCPCS: 70450; 72125; 72128; 72131; 99284; A9270

== ENCOUNTER 2025-10-06 18:11 | Emergency (ER) | payer BC, SELFPAY ==
[2025-10-06 18:30] VITALS: BP 130/71; PULSE 70; RESP 16; TEMP 36.8; O2SAT 97
[2025-10-06 21:17] LABS: BEDSIDEPREGUCG Negative (Negative)
[2025-10-06 21:18] LABS: Hematocrit 42.7 % (37.0-47.0); Hemoglobin 14.1 g/dL (12.0-15.0); Immature Granulocyte Percent A 0.3 % (0-0.5); Lymphocytes Absolute Auto 2.92 K/mm3 (0.9-3.2); Mean Corpuscular HGB Conc 33.0 g/dl (32-36); Mean Corpuscular Hemoglobin 31.7 pg (26-34); Mean Corpuscular Volume 96.0 fl (80-100); Nucleated Red Blood Cells Absolute Auto 0.000 K/mm3 (0.0-0.012); Nucleated Red Blood Cells Perc 0.0 % (0.0-0.2); Platelet Count Result 246 k/mm3 (150-375); Red Blood Count 4.45 M/mm3 (4.2-5.4); White Blood Count 8.7 K/mm3 (4.5-10.0)
[2025-10-06 21:22] LABS: Add Urine Microscopic? YES; Appearance Urine Cloudy (Clear); Glucose Urine UA Negative (Negative); Leukocyte Esterase Ur Trace LEU/UL (Negative); Nitrate Urine Positive (Negative); Non Pathogenic Casts 0-2; Specific Grav Ur 1.019 (1.001-1.035)
[2025-10-06 21:30] LABS: Alanine Aminotransferase 16 U/L (6-35); Albumin Level 4.0 g/dL (3.5-5.1); Alkaline Phosphatase 64 U/L (38-126); Anion Gap 7 mmol/L (4-12); Aspartate Amino Transferase 22 U/L (14-36); Bilirubin,Total 0.4 mg/dL (0.2-1.3); Blood Urea Nitrogen 16 mg/dL (7-17); Calcium 9.0 mg/dL (8.4-10.2); Carbon Dioxide 25 mmol/L (22-30); Chloride 107 mmol/L (98-107); Estimated CRCL calculation 70 ml/min; Estimated Glomerular Filt Rate > 60; Glucose 103 mg/dL (65-110); Lipase 69 U/L (23-300); Potassium 3.9 mmol/L (3.4-5.0); Sodium 139 mmol/L (137-145); Total Protein 7.3 g/dL (6.3-8.2)
[2025-10-06 21:53] VITALS: BP 127/71; PULSE 60; RESP 17; O2SAT 100
--- NOTE | 2025-10-06 22:52 | ED_ITS ---
HPI - Abdominal Pain General Chief Complaint: Abdominal Pain Stated Complaint: abd pain Time Seen by Provider: 10/06/25 21:39 History of Present Illness HPI narrative: Patient is a 45-year-old female who presents to the ER with lower abdominal pain and right flank pain. She reports her symptoms started 3 days ago. Patient reports she is to have a strong history of urinary tract infections but then has not have 1 for approximately 5 years. She reports she has no concern for STDs and denies any recent antibiotic use. Patient denies any recent fevers, hematuria, or constipation. She denies any history of kidney stones. Patient denies any other medical history relevant to this ER visit. Related Data Allergies Allergy/AdvReac Type Severity Reaction Status Date / Time levofloxacin (From LevPassman) Allergy Intermediate Rash Verified 10/06/25 18:30 Penicillins Allergy Mild Hives / Verified 10/06/25 18:30 Red Face Review of Systems 2 Review of Systems: All systems reviewed & are unremarkable except as noted in HPI and below PMFSH Past Medical History Medical History History of pyelonephritis Surgical History Surgical History History of Social History Social History Alcohol intake: current Gender identity (if verbalized by the patient): Female Exam 2 Narrative: GENERAL: Well appearing, well-nourished, non-toxic, in no acute distress. HEAD: Normocephalic, atraumatic. NECK: Supple. No adenopathy, no masses. RESPIRATORY: Airway patent, respirations nonlabored. Clear to auscultation bilaterally, no rales, rhonchi, wheezing. CARDIOVASCULAR: Regular rate and rhythm without murmurs, rubs, or gallops. Peripheral pulses 2+ and equal bilaterally. ABDOMINAL: Soft, tender bilateral lower abdominal quadrants, nondistended, no hepatosplenomegaly. Normoactive BS. MUSCULOSKELETAL: Moves all extremities. Strength/ROM intact without gross deformities. SKIN: Warm, dry, normal color. No rashes. NEURO: A&O X3. Speech clear. Cranial nerves II-XII intact. No ataxic movements. PSYCHIATRIC: Appropriate mood and affect. Normal interaction. Course Vital Signs Vital signs: Vital Signs Temperature 36.8 C 10/06/25 18:30 Pulse Rate 70 10/06/25 18:30 Respiratory Rate 16 10/06/25 18:30 Blood Pressure 130/71 10/06/25 18:30 Pulse Oximetry 97 10/06/25 18:30 Temperature 36.8 C 10/06/25 18:30 Pulse Rate 60 10/06/25 21:53 Respiratory Rate 17 10/06/25 21:53 Blood Pressure 127/71 10/06/25 21:53 Pulse Oximetry 100 10/06/25 21:53 MDM - Abdominal Pain MDM Narrative Medical decision making narrative: Patient is a 45-year-old female who presents to the ER with lower abdominal pain and right flank pain. She reports her symptoms started 3 days ago. Patient reports she is to have a strong history of urinary tract infections but then has not have 1 for approximately 5 years. She reports she has no concern for STDs and denies any recent antibiotic use. Patient denies any recent fevers, hematuria, or constipation. She denies any history of kidney stones. Patient denies any other medical history relevant to this ER visit. Labs Ordered: CBC, CMP, UA, lipase Imaging Ordered: Patient Medications Ordered: Clindamycin p.o., patient declined pain medication administration Results: Her blood work results were unremarkable. Patient's urinalysis indicates patient has UTI. Diagnosis: Urinary tract infection Patient Education/Shared MDM: Results of lab work and imaging shared with patient. She will be given her 1st dose of oral antibiotic here in the ER. Patient strongly advised to maintain hydration status upon discharge and follow- up with her PCP to ensure her UTI has resolved. She will be discharged home with a prescription for clindamycin. Strict return precautions provided. Patient verbalized understanding and is in agreement with plan. Vital signs stable at time of discharge. All questions answered. Differential Diagnosis Differential diagnosis: Likely abdominal pain, calculus of kidney and other (Urinary tract infection) Lab Data Attestation: I reviewed the patient's lab results. 10/06/25 21:12 10/06/25 21:11 Labs: Lab Results 10/06/25 10/06/25 10/06/25 Range/Units 21:11 21:12 21:15 WBC 8.7 (4.5-10.0) K/mm3 RBC 4.45 (4.2-5.4) M/mm3 Hgb 14.1 (12.0-15.0) g/dL Hct 42.7 (37.0-47.0) % MCV 96.0 (80-100) fl MCH 31.7 (26-34) pg MCHC 33.0 (32-36) g/dl RDW 13.1 (11.5-14.5) % Plt Count 246 (150-375) k/mm3 MPV 9.5 (7.4-10.4) fl Immature Gran % (Auto) 0.3 (0-0.5) % Neut % (Auto) 56.9 (45.5-73.1) % Lymph % (Auto) 33.4 (18.3-44.2) % [place] % (Auto) 7.3 (2.6-8.5) % Eos % (Auto) 1.9 (0-4.4) % Baso % (Auto) 0.2 (0.2-1.2) % Lymph # (Auto) 2.92 (0.9-3.2) K/mm3 [place] # (Auto) 0.6 (0.1-0.6) K/mm3 Eos # (Auto) 0.2 (0-0.3) K/mm3 Baso # (Auto) 0.0 (0.0-0.1) K/mm3 Abs Immat Gran (auto) 0.03 (0.00-0.031) K/mm3 Absolute Neuts (auto) 5.0 (1.3-6.7) K/mm3 Absolute Nucleated RBC 0.000 (0.0-0.012) K/mm3 Nucleated RBC % 0.0 (0.0-0.2) % Sodium 139 (137-145) mmol/L Potassium 3.9 (3.4-5.0) mmol/L Chloride 107 (98-107) mmol/L Carbon Dioxide 25 (22-30) mmol/L Anion Gap 7 (4-12) mmol/L BUN 16 (7-17) mg/dL Creatinine 0.88 (0.7-1.0) mg/dL Estim Creat Clear Calc 70 ml/min Estimated GFR > 60 (59 - ) Glucose 103 (65-110) mg/dL Calcium 9.0 (8.4-10.2) mg/dL Total Bilirubin 0.4 (0.2-1.3) mg/dL AST 22 (14-36) U/L ALT 16 (6-35) U/L Alkaline Phosphatase 64 (38-126) U/L Total Protein 7.3 (6.3-8.2) g/dL Albumin 4.0 (3.5-5.1) g/dL Lipase 69 (23-300) U/L Urine Color Yellow (Yellow) Urine Appearance Cloudy H (Clear) Urine pH 6.5 (5.0-9.0) Ur Specific [place] 1.019 (1.001-1.035) Urine Protein 1+ H (Negative) mg/dL Urine Glucose (UA) Negative (Negative) mg/dL Urine Ketones Negative (Negative) mg/dL Ur Blood (Man) Non-hemolyzed trace H (Negative) Urine Nitrate Positive H (Negative) Urine Bilirubin Negative (Negative) Urine Urobilinogen 1.0 (<2.0) mg/dL Leukocyte Esterase Rfl Trace H (Negative) TERRI/UL Urine RBC 0-2 (0-2) /hpf Urine WBC 6-10 H (0-3) /hpf Ur Squamous Epith Cells None seen (Few) /hpf Urine Bacteria 4+ H /hpf Urine Casts 0-2 POC Urine HCG, Qual Negative (Negative) Discharge Plan Discharge Clinical Impression: Urinary tract infection Patient Disposition: Home Condition: Stable Instructions: Antibiotic Form, Urinary Tract Infection in Women (ED) Additional Instructions: Please return to the ER with any worsening symptoms. Follow-up with primary care provider in the next 2-3 days to ensure you are healing. Please complete your full dose of antibiotics. You may take Tylenol and ibuprofen as needed for pain control. Patient Language: Grenadian Prescriptions: New clindamycin HCl [Cleocin HCl] 300 mg capsule 300 mg PO Q6H 7 Days Qty: 28 0RF No Action albuterol sulfate [Ventolin HFA] 90 mcg/actuation HFA aerosol inhaler 2 puff inhalation QID PRN (Reason: shortness of breath or wheezing) Qty: 8.5 0RF prednisone 20 mg tablet 40 mg PO DAILY Qty: 10 0RF cephalexin 500 mg capsule 500 mg PO Q8H 5 Days Qty: 15 0RF naproxen [Naprosyn] 500 mg tablet 500 mg PO BID PRN (Reason: pain) Qty: 30 0RF hydrocodone-acetaminophen 5-325 mg tablet 1 tablet PO Q6H PRN (Reason: pain) Qty: 14 0RF cyclobenzaprine 10 mg tablet 10 mg PO TID PRN (Reason: muscle spasm) Qty: 30 0RF methylprednisolone [Medrol (Bruce)] 4 mg tablets,dose pack See Rx Instructions .ROUTE .COMPLEX Qty: 21 0RF Rx Instructions: orally per package directions clindamycin HCl 300 mg capsule 300 mg PO Q6H 7 Days Qty: 28 0RF tramadol 50 mg tablet 50 mg PO Q6H PRN (Reason: pain) Qty: 14 0RF acetaminophen 500 mg capsule 1,000 mg PO Q6H PRN (Reason: pain) Qty: 20 0RF ibuprofen 600 mg tablet 600 mg PO TID PRN (Reason: pain) Qty: 20 0RF Follow-up/Referrals: Jo Liu DO [Physician, Family Practice] Referral Note: primary care provider PHYSICIAN,BILINGUAL HR GENERALIST [Primary Care Provider, Internal Medicine] Stand Alone Forms: Work/School Release IP Time of Disposition: 22:52
[2025-10-06] MEDS: CLINDAMYCIN HCL 150 MG CAP 300 MG PO (22:57)
[2025-10-06 23:02] VITALS: PULSE 63; RESP 19; O2SAT 100
--- OUTSIDE RECORDS SUMMARY | 2025-10-07 15:33 | XMS_ITS | Clinical Summary ---
Author Organization [facility] Address [address] [place] [address] Care Team Providers Care Insurance Administrative Assistant Name Role Phone Deya Laird MD Primary Care Provider [phone] Edwina Hanks Unavailable [phone] Allergies Active Allergy Reactions Criticality Noted Date Comments Levofloxacin Hives,Rash Medium 10/26/2024 Penicillins Hives,Rash Medium 10/26/2024 Medications ketorolac (TORADOL) 10 mg tablet Take 1 tablet (10 mg total) by mouth every 6 (six) hours as needed for pain 20 tablet 10/26/2024 Active predniSONE (DELTASONE) 20 mg tablet Take 2 tablets (40 mg) by mouth daily 8 tablet 10/26/2024 Active Social History Tobacco Use Types Packs/Day Years Used Date Smoking Tobacco: Never Assessed Personal Safety Answer Date Recorded Have you ever been in or are you currently in a harmful physical or emotional relationship or is someone making you feel afraid or unsafe? Denies 10/26/2024 Comments Unknown Sex and Gender Information Value Date Recorded Sex Assigned at Not on file Legal Sex Female 7:53 AM TELECASTING TECHNICIAN Gender Identity Not on file Sexual Orientation Not on file Last Filed Vital Signs Vital Sign Reading Time Taken Comments Blood Pressure 126/84 10/26/2024 1:20 PM TELECASTING TECHNICIAN Pulse 82 10/26/2024 1:20 PM TELECASTING TECHNICIAN Temperature 37.1 C (98.8 F) 10/26/2024 11:03 AM TELECASTING TECHNICIAN Respiratory Rate 18 10/26/2024 1:20 PM TELECASTING TECHNICIAN Oxygen Saturation 99% 10/26/2024 1:20 PM TELECASTING TECHNICIAN Inhaled Oxygen Concentration - - Weight 71.3 kg (157 lb 3 oz) 10/26/2024 11:03 AM TELECASTING TECHNICIAN Height 162.6 cm (5' 4) 10/26/2024 11:03 AM TELECASTING TECHNICIAN Body Mass Index 26.98 10/26/2024 11:03 AM TELECASTING TECHNICIAN Plan of Treatment Health Maintenance Due Date Last Done Comments Breast Cancer Screening-Mammogram 1981 Cervical Cancer Screening 1981 Depression Screening 1981 Hepatitis C Screening 1981 Varicella Vaccines (1 of 2 - 13+ 2-dose series) 1993 Hepatitis B Screening 1999 Regular Well Visit/Exam 18-64 1999 Pneumococcal vaccine <65 (1 of 2 - PCV) 2000 HPV Vaccines (1 - 3-dose SCDM series) 2008 Influenza Vaccine (#1) 2025 DTaP/Tdap/Td Vaccine (2 - Td or Tdap) 02/27/[address] [place] [address] [address] [place] [address] PLAN Care Teams Insurance Administrative Assistant Relationship Specialty Start Date End Date Deya Laird MD PCP - General 02/16/21 Edwina Hanks PA [address] [place] [address] [place] [address] 05/17/23
--- OUTSIDE RECORDS SUMMARY | 2025-10-07 15:49 | XMS_ITS | Encounter Summary ---
Author Organization [facility] Address [facility] [place] [address] Care Team Providers Care Systems Engineering Manager Name Role Phone None, Provider Primary Care Provider Deya Alvarado MD Primary Care Provider [phone] None, Provider Primary Care Provider Mirtha stephen Encounter Details Date Type Department Care Team (Latest Contact Info) Description 10/07/2018 Abstract [facility] Rocio Bledsoe MD Social History Tobacco Use Types Packs/Day Years Used Date Smoking Tobacco: Every Day Cigarettes Smokeless Tobacco: Never Alcohol Use Standard Drinks/Week Comments No 0 (1 standard drink = 0.6 oz pur e alcohol) AUDIT-C Answer Date Recorded Frequency of Alcohol Consumption Never 09/15/2018 Average Number of Drinks Not on file 018 Frequency of Binge Drinking Not on file 09/01 Comments Unknown Sex and Gender Information Value Date Recorded Sex Assigned at Female 10/05/2025 11:45 AM GENERAL WORKER Legal Sex Female 10:30 PM CDT Gender Identity Not on file Sexual Orientation Not on file documented as of this encounter Plan of Treatment Not on file documented as of this encounter Visit Diagnoses Not on filedocumented in this encounter Additional Health Concerns Infection Onset Date Last Indicated Resolved Time MRSA 07/09/2017 07/09/2017 documented as of this encounter Care Teams Systems Engineering Manager Relationship Specialty Start Date End Date None, ProviderMD PCP - General 09/15/18 02/15/21 Deya Laird MD [facility] [address] [address] PCP - General FAMILY PRACTICE 02/16/21 11/07/22 None, Provider, MD PCP - General UNKNOWN PHYSICIAN SPECIALTY 11/08/22 documented as of this encounter
--- OUTSIDE RECORDS SUMMARY | 2025-10-07 15:49 | XMS_ITS | Clinical Summary ---
Author Organization [facility] Address [facility] [place] [address] Care Team Providers Care Chronograph Operator Name Role Phone None, Provider MD Primary Care Provider Unavaila ble Allergies Active Allergy Reactions Criticality Noted Date Comments Levofloxacin Hives 02/16/2021 Penicillin V Unknown 09/15/2018 Medications traMADol (ULTRAM) 50 MG tabletIndication s:Acute Pain < 3 Day Supply Take 1 tablet (50 mg total) by mouth every 6 (six) hours as needed. Indications : Acute Pain < 3 Day Supply 10 tablet 09/27/2024 Active HYDROcodone-acet aminophen (NORCO) 5-325 MG tabletIndication s:Acute Pain < 7 Day Supply Take 1 tablet by mouth every 6 (six) hours as needed. Indications : Acute Pain < 7 Day Supply 21 tablet 10/09/2024 Active Encounters Date Type Department Care Team Description 10/05/2025 11:40 AM SIGNAL INTELLIGENCE ANALYST - 10/05/2025 12:22 PM [facility] Emergency [facility] [place] [address] Abdominal Pain; Flank Pain Discharge Disposition: Left Against Medical Advice 10/05/2025 Travel from Last 3 Months Social History Tobacco Use Types Packs/Day Years Used Date Smoking Tobacco: Every Day Cigarettes Smokeless Tobacco: Never Tobacco Cessation:Ready to Q uit: No; Counseling Given: Yes Alcohol Use Standard Drinks/Week Comments No 0 (1 standard drink = 0.6 oz pur e alcohol) occasional AUDIT-C Answer Date Recorded Frequency of Alcohol Consumption Never 09/15/2018 Average Number of Drinks Not on file 018 Frequency of Binge Drinking Not on file 10/1 04/2018 Comments No Sex and Gender Information Value Date Recorded Sex Assigned at Female 10/05/2025 11:45 AM SIGNAL INTELLIGENCE ANALYST Legal Sex Female 10:30 PM CDT Gender Identity Not on file Sexual Orientation Not on file Last Filed Vital Signs Vital Sign Reading Time Taken Comments Blood Pressure 134/81 10/05/2025 10:16 AM SIGNAL INTELLIGENCE ANALYST Pulse 64 10/05/2025 10:16 AM SIGNAL INTELLIGENCE ANALYST Temperature 37.1 C (98.7 F) 10/05/2025 10:16 AM SIGNAL INTELLIGENCE ANALYST Respiratory Rate 16 10/05/2025 10:16 AM SIGNAL INTELLIGENCE ANALYST Oxygen Saturation 96% 10/05/2025 10:16 AM SIGNAL INTELLIGENCE ANALYST Inhaled Oxygen Concentration - - Weight 72.6 kg (160 lb) 10/05/2025 10:16 AM SIGNAL INTELLIGENCE ANALYST Height 162.6 cm (5' 4) 10/05/2025 10:16 AM SIGNAL INTELLIGENCE ANALYST Body Mass Index 27.46 10/05/2025 10:16 AM SIGNAL INTELLIGENCE ANALYST Plan of Treatment Health Maintenance Due Date Last Done Comments Cervical Cancer Screening Pa p Smear (Age 30 to 64) Every 3 Years 1981 Annual Physical 1984 Hepatitis C 1999 Hepatitis B Vaccines (1 of 3 - 19+ 3-dose series) 2000 Pneumococcal Vaccine: Pediat rics (0 to 5 Years) and At-Risk Patients (6 to 49 Years) (1 of 2 - PCV) 2000 HPV Vaccines (1 - 3-dose SCD M series) 2008 Cervical Cancer Screening Pa p with HPV Testing (Age 30 to 64) Every 5 Years 2011 Cervical Cancer Screening with HPV 2011 Mammogram Screening 2021 COVID-19 Vaccine ( - 2024-2 6 season) 2025 Influenza Adult (#1) 2025 DTaP, Tdap and Td Vaccines ( 2 - Td or Tdap) 02/27/2032 02/26/2022 Hepatitis A Vaccines Aged Out No long er eligible based on patient's age to complete this topic Meningococcal B Vaccine Aged Out No l onger eligible based on patient's age to complete this topic Meningococcal Vaccine Aged Out No len cristino eligible based on patient's age to complete this topic RSV Immunizations Under 20 Months Aged Out No longer eligible based on patient's age to complete this topic Additional Health Concerns Infection Onset Date Last Indicated MRSA 07/09/2017 07/09/2017 Insurance BLUE CROSS BLUE SHIELD MEDICAID C/O PROVIDER SERVICES [place] [id number] Care Teams Chronograph Operator Relationship Specialty Start Date End Date None, Provider, PCP - General UNKNOWN PHYSICIAN SPECIALTY 11/08/22
== END 2025-10-06 23:03 | disposition home or self-care (01) ==
PROVIDERS: Emergency Medicine; Emergency Provider Registered Nurse
DX: N39.0 Urinary tract infection, site not specified (principal)
CPT/HCPCS: 36415; 80053; 81001; 81025; 83690; 85025; 87086; 87186; 99283